=== PATIENT | female | born 1960 | race African-American/Black ===

== ENCOUNTER 2016-08-21 22:51 | Inpatient (IN) | payer OTHER ==
--- NOTE | ~2016-08-21 | CO ---
Unit #: [id number] #: [id number] Patient: SELVIN RANGEL [id number] [address] [place], [place] [address] [id number] MR#: [id number] NAME: SELVIN RANGEL ROOM: 229 Age: 56 Sex: F Admission Date: 08/21/2016 : 1960 Attending Physician: Giorgi Cobian M.D. Primary Care Physician: Jenaro Blanca M.D. Consultation Date: 08/22/2016 CONSULTATION REPORT HISTORY OF PRESENT ILLNESS Ms. Rangel is a 56-year-old female, who presented in the ER with a 3-day history of colicky abdominal pain, abdominal bloating, and nausea, but no vomiting, fever, chills, or dysuria. She has had 2 normal stools within the last 24 hours and since the hospital admission, she has passed flatus. However, a CT scan in the emergency room was concerning for possible partial small bowel obstruction. The patient has had a similar episode in 2013 where with conservative management, she resolved partial small-bowel obstruction or an ileus. The patient denies any hematemesis, hematochezia, or melena. PAST MEDICAL HISTORY History of seizure disorder, her last seizure was 2 years ago. She has had a lap john 10 or 15 years ago, total abdominal hysterectomy 20 years ago, history of diabetes, depression, hyperlipidemia. She is status post hip and knee surgery by Dr. Mars. ALLERGIES She has an allergy to Stadol. CURRENT MEDICATIONS Include Seroquel, Keppra, Prilosec, Lamictal, Desyrel, Ambien, metformin, pravastatin, lisinopril, and vitamin D. FAMILY HISTORY Diabetes and atherosclerotic coronary artery disease. SOCIAL HISTORY Lives with family. Denies use of tobacco or alcohol. REVIEW OF SYSTEMS Again no hematemesis, hematochezia, or melena. No vomiting. No dysuria. No productive cough. PHYSICAL EXAMINATION GENERAL: She is awake, alert, and oriented. Very pleasant demeanor. NG tube was well positioned. VITAL SIGNS: Temperature is 97.8, pulse 91 and regular, respirations 12, blood pressure 139/79. HEENT: Unremarkable. No scleral icterus. CARDIAC: Regular rate and rhythm. LUNGS: Clear. ABDOMEN: Soft and nondistended. She has no involuntary guarding or rebound tenderness. There is no mass. Wounds are all well healed without Unit #: [id number] #: [id number] Patient: SELVIN RANGEL hernia. EXTREMITIES: No clubbing, cyanosis, or edema. NEUROLOGIC: Grossly intact. DIAGNOSTIC STUDIES LABORATORY RESULTS: Pending. IMAGING STUDIES: CT scan was consistent with possible partial small-bowel obstruction. No transition point identified. ASSESSMENT AND PLAN A 56-year-old female, who has had a previous hysterectomy and laparoscopic cholecystectomy, who presents with colicky abdominal pain, abdominal bloating, and nausea. CT scan was suggestive of a partial small-bowel obstruction. However, the patient continues to have bowel function. Today, we will stimulate her bowel. Repeat her flat and upright abdominal x-ray. Adequately hydrate her and check her laboratories. We will try to treat this conservatively. States she will resolve as she has previously. However, I will plan since she has had previous episodes to do a small-bowel followthrough to confirm that her bowel is normal prior to discharge if she does not show signs of persistent obstruction and need surgery. I have discussed this with the patient. She understands and agrees to proceed. Dictated by... Sophie Mendosa/senia TD: 08/22/2016 07:02 JOB #: [id number] CONSULTATION REPORT Page 1 of 1 X Giorgi Cobian MD X CONSULTATION REPORT
--- NOTE | ~2016-08-21 | CR236 ---
[facility] A Service of [facility] & [facility] RADIOLOGY TEXT RESULTS PATIENT: SELVIN COHEN LOCATION: C2A 229-01 : 58 UNIT #: [id number] AGE: [address]: Giorgi Cobian MD SEX: F ORDER DR: [id number] [facility] [address] [place], [place] [address] [id number] I MR#: [id number] Acc #: [id number] NAME: SELVIN COHEN : 1960 SEX: F STUDY DATE/TIME: 08/23/2016 8:29 UNIT: C2A ROOM: 229 STUDY DESCRIPTION: CR Small Bowel Sbft W Films Attending Physician: Giorgi Cobian M.D. Ordering Physician: Giorgi Cobian M.D. Primary Care Physician: Jenaro Blanca M.D. MEDICAL IMAGING REPORT This report is preliminary unless electronic signature is present EXAM Small bowel series. INDICATION Abdominal cramping and constipation for 3 days. FINDINGS Patient was initially administered barium through her nasogastric tube, however, this was difficult to administer probably secondary to some blockage within the distal aspect of the catheter. I did attempt flushing the catheter several times and advanced a wire through it in order to see if this would improve flow within it but this was unsuccessful and patient was subsequently administered the barium orally. The patient's initial mechanical engineering intern image was unremarkable. Visualized portions of the stomach appeared unremarkable. Patient was noted to have oral contrast material within the colon on 4-hour 50 minutes, however, 2-hour and 30-minute images no contrast was identified within the colon. There was a prominent loop of small bowel seen within the left upper quadrant which did appear to have some mucosal thickening. I suspect this probably corresponds to the area seen on prior study from August 21, 2016. IMPRESSION This patient does have delayed transit through the small bowel. Oral contrast was not identified within the colon until the 4 hour and 50 minute images. However, the patient does not appear to be completely obstructed. The majority of the small bowel loops actually appear unremarkable. There is a loop of small bowel seen within the left upper quadrant which I think does have some fold thickening and this probably represents the loop of bowel that was seen on a prior CT from August 21, 2016. Certainly CT of the abdomen and pelvis with oral and IV contrast would be much more sensitive for evaluation of the bowel. A total of 5 fluoroscopic images were obtained, as were 4 overhead images. Spot images were not obtained due to prolonged small bowel transit time. No [facility]. [facility] A Service of [facility] RADIOLOGY TEXT RESULTS PATIENT: SELVIN COHEN LOCATION: [facility] 229-01 : 58 UNIT #: [id number] AGE: [address]: Giorgi Cobian MD SEX: F ORDER DR: fluoroscopy time was recorded. Dictated by... Kaylyn Quintana M.D. THIS IS AN ELECTRONICALLY VERIFIED REPORT Kaylyn Quintana M.D. at 08/24/2016 4:37 PM AFF/josy TD: 08/24/2016 12:18 JOB #: [id number] MEDICAL IMAGING REPORT Page 1 of 1 COPY
--- NOTE | ~2016-08-21 | BMI ---
[facility] Nutrition Therapy DATE: 08/22/16 Patient: SELVIN COHEN Physician: MARYCRUZ Address: [address] [place] [address] Room/Bed: [address] [place] [address], Zip: [place] [address] Admit Date: 08/21/16 Date of : 58 Height: 5 5 Weight: 241 109.5 HIGH BMI NOTE: DX: 56 y/o female admitted with SBO ANTHROPOMETRICS: Ht: 65", Wt: 109.5 kg, BMI: 40 (Stage III obese) DIET: NPO INTERVENTION: Diet as tolerated, meds/fluids per MD RECOMMENDATIONS: 1. Advance to consistent carb/healthy heart diet as tolerated due to PMH of diabetes and to promote a gradual weight loss towards a healthy BMI range. 2. If unable to advance PO diet due to dx and nutrition support is needed please consult RD for further recommendations. Respectfully, Tiffanie Dahl RD, LD [facility] cc: client file
--- NOTE | ~2016-08-21 | DS ---
Unit #: [id number] #: [id number] Patient: SELVIN COHEN [id number] [facility]. [place], [place] [address] [id number] I MR#: [id number] NAME: SELVIN COHEN ROOM: 229 Age: 56 Sex: F Admission Date: 08/21/2016 : 1960 Discharge Date: 08/25/2016 Attending Physician: Giorgi Cobian M.D. Primary Care Physician: Jenaro Blanca M.D. DISCHARGE SUMMARY CONSULTATIONS None. PROCEDURE PERFORMED None. ADMITTING DIAGNOSIS Partial small-bowel obstruction. DISCHARGE DIAGNOSIS Partial small-bowel obstruction. SECONDARY DIAGNOSES History of seizure disorder, hypertension, and diabetes. BRIEF HOSPITAL COURSE This is a 56-year-old lady, who was admitted with signs and symptoms of partial small-bowel obstruction. She was admitted and managed conservatively. She had a small bowel follow-through that showed no obstruction. She was tolerating regular diet and having flatus prior to discharge. DISPOSITION Discharged to home. DISCHARGE INSTRUCTIONS She is to follow up with [facility] as necessary. She can be on a regular diet and resume her home medications. Dictated by... Patrick Puente III, M.D. VCL/senia TD: 08/26/2016 01:20 JOB #: [id number] Unit #: [id number] #: [id number] Patient: SELVIN COHEN DISCHARGE SUMMARY Page 1 of 1 X Patrick Puente III, MD X DISCHARGE SUMMARY
--- NOTE | ~2016-08-21 | CR4 ---
[facility] A Service of [facility] & [facility] RADIOLOGY TEXT RESULTS PATIENT: SELVIN COHEN LOCATION: C2A 229-01 : 58 UNIT #: [id number] AGE: [address]: Giorgi Cobian MD SEX: F ORDER DR: [id number] [facility] [address] [place], [place] [address] [id number] I MR#: [id number] Acc #: [id number] NAME: SELVIN COHEN : 1960 SEX: F STUDY DATE/TIME: 08/22/2016 09:34 UNIT: C2A ROOM: 229 STUDY DESCRIPTION: CR Abdomen Flat Upright or Dec Attending Physician: Giorgi Cobian M.D. Ordering Physician: Giorgi Cobian M.D. Primary Care Physician: Jenaro Blanca M.D. MEDICAL IMAGING REPORT This report is preliminary unless electronic signature is present EXAM Abdomen supine and upright, 08/22/2016 0934 hours HISTORY 56-year-old woman complaining of persistent abdominal pain with nausea and vomiting, follow up small bowel obstruction. Symptoms since 08/21/2016. COMPARISON CT abdomen 08/21/2016 FINDINGS There is a nasogastric tube present with tip in the mid body of the stomach. The bowel gas pattern is nonspecific. No dilated loops of small bowel are seen on plain film. The colon is nondistended. Surgical clips are present in the left side of the pelvis, unchanged. IMPRESSION 1. Nasogastric tube tip is in the mid body of the stomach. 2. No definite residual small bowel dilatation is seen. The colon is decompressed. The dilated loops of bowel seen on CT yesterday are not detected on plain film. There is no free air. Dictated by... Joceline Velasquez M.D. THIS IS AN ELECTRONICALLY VERIFIED REPORT Joceline Velasquez M.D. at 08/23/2016 9:38 AM SAM/wale TD: 08/22/2016 18:45 JOB #: [id number] [facility] A Service of [facility] & [facility] RADIOLOGY TEXT RESULTS PATIENT: SELVIN COHEN LOCATION: A 229-01 : 58 UNIT #: [id number] AGE: [address]: Giorgi Cobian MD SEX: F ORDER DR: MEDICAL IMAGING REPORT Page 1 of 1 COPY
[~2016-08-21 22:51] MED LIST: ADVAIR 1001 DISK W/D PO; AMBIEN PO; BACTRIM DS TABL1 TA1 PO; CIPRO PO; COUMADIN3 MG PO; DESYREL150 M1 PO; FLEXERIL10 MG PO; IBUPROFEN800 MG PO; IMITREX; KEPPRA1000 MG PO; KEPPRA500 M2 PO; LAMICTAL ODT200 MG PO; LAMICTAL PO; LISINOPRIL20 MG PO; METFORMIN HCL500 M1 PO; NORCO 10/3251 TAB PO; PHENERGAN25 M1 PO; PRAVASTATIN SOD40 MG PO; PRILOSEC PO; PRILOSEC20 MG PO; PROTONIX PO; PYRIDIUM100 MG PO; RELAFEN PO; SEROQUEL XR400 M1 PO; SEROQUEL400 MG PO; TYLENOL #3 PO; TYLENOL PO; TYLENOL325 M1 PO; VITAMIN D350000 UNIT PO; VOLTAREN50 MG PO; ZOLPIDEM TARTRAT5 MG PO
[2016-08-22 06:29] LABS: BASOPHIL% 0.3 % (0-2.5); EOSINOPHIL# 0.2 X10e3 (0-0.7); EOSINOPHIL% 2.1 % (0.0-7.0); HEMATOCRIT 32.1 % (35.0-45.0); HEMOGLOBIN 10.2 gm/dL (12.0-16.0); LYMPHOCYTE# 2.4 X10e3 (1.0-3.5); LYMPHOCYTE% 33.3 % (17.0-45.0); MEAN CELL VOLUME 88.4 FL (83-96); MEAN CORPUSCULAR HGB CONC 31.7 g/dL (30-36); MEAN PLATELET VOLUME 7.4 FL (6.5-11.5); MONOCYTE# 0.6 X10e3 (0-1.0); MONOCYTE% 7.9 % (3.0-12.0); NEUTROPHIL% 56.4 % (40-75); PLATELET COUNT 242 X10e3 (140-420); RED BLOOD COUNT 3.63 X10e (3.90-5.30); RED CELL DISTRIBUTION WIDTH 13.9 % (11.0-15.5); WHITE BLOOD COUNT 7.2 X10e3 (4.0-10.5)
[2016-08-22 06:32] LABS: DIFF IND NO
[2016-08-22 06:48] LABS: BLOOD UREA NITROGEN 13 mg/dL (9-23); BUN/CREATININE RATIO 18.57; CALCIUM SERUM 8.7 mg/dL (8.4-10.2); CARBON DIOXIDE 26 mmol/L (22-31); CHLORIDE 105 mmol/L (100-111); CREATININE SERUM 0.7 mg/dL (0.6-1.4); GLOM FILT RATE Estimated ABOVE60 mL/min (>60); GLUCOSE FASTING 133 mg/dL (70-110); MAGNESIUM 1.7 mg/dL (1.6-3.0); SODIUM 138 mmol/L (135-145)
[2016-08-23 07:01] LABS: HEMATOCRIT 33.4 % (35.0-45.0); HEMOGLOBIN 10.6 gm/dL (12.0-16.0); MEAN CELL VOLUME 88.3 FL (83-96); MEAN CORPUSCULAR HEMOGLOBIN 28.1 PG (28-34); MEAN CORPUSCULAR HGB CONC 31.8 g/dL (30-36); MEAN PLATELET VOLUME 7.4 FL (6.5-11.5); RED BLOOD COUNT 3.78 X10e (3.90-5.30); RED CELL DISTRIBUTION WIDTH 13.7 % (11.0-15.5); WHITE BLOOD COUNT 7.6 X10e3 (4.0-10.5)
[2016-08-23 08:06] LABS: BLOOD UREA NITROGEN 8 mg/dL (9-23); BUN/CREATININE RATIO 13.33; CALCIUM SERUM 8.9 mg/dL (8.4-10.2); CARBON DIOXIDE 28 mmol/L (22-31); CHLORIDE 104 mmol/L (100-111); CREATININE SERUM 0.6 mg/dL (0.6-1.4); GLOM FILT RATE Estimated ABOVE60 mL/min (>60); GLUCOSE FASTING 104 mg/dL (70-110); POTASSIUM 4.1 mmol/L (3.5-5.1); SODIUM 138 mmol/L (135-145)
== END 2016-08-25 11:40 | disposition home or self-care (01) | DRG 390 ==
LOC: C2A 22:51
PROVIDERS: Specialist
DX: K56.60 Unspecified intestinal obstruction (principal); I10 Essential (primary) hypertension; G40.909 Epilepsy, unspecified, not intractable, without status epilepticus; E11.9 Type 2 diabetes mellitus without complications; Z79.84 Long term (current) use of oral hypoglycemic drugs; Z90.49 Acquired absence of other specified parts of digestive tract; Z90.710 Acquired absence of both cervix and uterus; E78.5 Hyperlipidemia, unspecified; F32.9 Major depressive disorder, single episode, unspecified
CPT/HCPCS: 74020; 74250; 80048; 82947; 83735; 85025; 85027; C1769; C9113; J1170; J1650; J1953; J2270; J2405

== ENCOUNTER → 2016-11-07 | Outpatient (CLI) | payer OTHER ==
[~2016-11-07] MED LIST changes: +HYDROCODONE PO; +REGLAN10 MG PO
--- NOTE | ~2016-11-07 | EKG ---
PATIENT: SELVIN COHEN UNIT #: [id number] Ventricular Rate: 92 BPM Atrial Rate: 92 BPM P-R Interval: 156 ms QRS Duration: 100 ms Q-T Interval: 360 ms QTC Calculation(Bezet): 445 ms P [place]: 59 degrees Calculated R [place]: 5 degrees Calculated T [place]: 61 degrees Diagnosis Line: Normal sinus rhythm Diagnosis Line: Voltage criteria for left ventricular hypertrophy Diagnosis Line: Abnormal ECG Diagnosis Line: When compared with ECG of 27-JUL-2015 11:18, Diagnosis Line: No significant change was found Diagnosis Line: Confirmed by EBONY OGDEN MD ([id number]) on Diagnosis Line: 11/07/2016 10:20:42 PM INTERPRETING MD: RADHA
[2016-11-07 13:13] LABS: HEMATOCRIT 37.6 % (35.0-45.0); HEMOGLOBIN 11.9 gm/dL (12.0-16.0); MEAN CELL VOLUME 87.9 FL (83-96); MEAN CORPUSCULAR HEMOGLOBIN 27.8 PG (28-34); MEAN CORPUSCULAR HGB CONC 31.6 g/dL (30-36); MEAN PLATELET VOLUME 7.3 FL (6.5-11.5); RED BLOOD COUNT 4.28 X10e (3.90-5.30); RED CELL DISTRIBUTION WIDTH 13.9 % (11.0-15.5)
[2016-11-07 13:53] LABS: ALBUMIN SERUM 4.5 g/dL (3.5-5.0); BILIRUBIN,TOTAL 0.7 mg/dL (0.2-2.0); CALCIUM SERUM 9.9 mg/dL (8.4-10.2); GLOM FILT RATE Estimated 72.5 mL/min (>60); POTASSIUM 4.1 mmol/L (3.5-5.1)
== END | disposition home or self-care (01) ==
LOC: CAMB 12:23 → EDSTATUS 13:00
PROVIDERS: Specialist
DX: Z01.818 Encounter for other preprocedural examination (principal)
CPT/HCPCS: 36415; 80053; 85027; 93005

== ENCOUNTER 2016-11-14 07:16 | Inpatient (IN) | payer OTHER ==
--- NOTE | ~2016-11-14 | OR ---
Unit #: [id number] #: [id number] Patient: SELVIN RANGEL [id number] [facility] [address] [place] [address] [facility]. [place], [place] [address] [id number] I MR#: [id number] NAME: SELVIN RANGEL ROOM: 464 Date of Procedure: 11/14/2016 Admission Date: 11/14/2016 Surgeon: Giorgi Cobian M.D. : 1960 Attending Physician: Giorgi Cboian M.D. Referring Physician: Giorgi Cobian M.D. Primary Care Physician: Jenaro Blanca M.D. OPERATIVE REPORT PREOPERATIVE DIAGNOSIS Chronic recurrent partial small bowel obstruction. POSTOPERATIVE DIAGNOSIS Chronic recurrent partial small bowel obstruction. PROCEDURES PERFORMED Exploratory laparotomy, extensive lysis of adhesions with right hemicolectomy with extended ileal resection. ANESTHESIA General endotracheal anesthesia. ESTIMATED BLOOD LOSS 100 mL. COMPLICATIONS One small bowel enterotomy was encountered during the case with minimal contamination. INDICATIONS FOR PROCEDURE Ms. Rangel is a 56-year-old female, who had several presentations for what appeared to be a small bowel obstruction that with conservative management would improve. During one hospitalization, she had a small bowel followthrough, which showed no definitive obstruction, but she did have persistently dilated proximal small bowel and a very slow transit time. She re-presented to the office with complaints of persistent postprandial bloating, colic, nausea, and vomiting. Because of her multiple presentations, previous history of abdominal surgery, we discussed and she agreed to exploratory laparotomy to evaluate for partial small bowel obstruction from adhesions or internal hernia. DESCRIPTION OF PROCEDURE The patient was admitted to [facility], positively identified, and transported to the operating room, and after induction of general endotracheal anesthesia, she received IV antibiotics per SCIP protocol. SCDs, catheter, and nasogastric tube were placed. She was prepped and draped in usual sterile fashion. A midline incision was made, dissected down through the soft tissue, entered the peritoneal cavity. Upon entering the peritoneal cavity, omental adhesions were taken down from the anterior abdominal wall circumferentially and then a Bookwalter retractor was used for retraction. She had very dense and Unit #: [id number] #: [id number] Patient: SELVIN RANGEL extensive adhesions down in her pelvis. We identified the cecum and free and dilated proximal small bowel loops, but as the small bowel went down into the pelvis, it was blanca matted with thick dense adhesions. It was a very tedious and slow dissection to bring all this small bowel that was adhesed in the pelvis up and freed up from the vaginal cuff and the lateral side velasquez. During the dissection, one enterotomy deep in the pelvis was made. There was a small contamination that was quickly controlled. This area was irrigated and there was no residual contamination after irrigation. Once we had completely freed up the bowel, we irrigated the pelvis and then packed it off. The small bowel was then evaluated from the ileocecal valve all the way to the ligament of Treitz. Some of the distal ileum for about 30 cm had a lot of serosal bruising, some of the mesentery was of questionable viability and I was concerned that leaving this portion of the small bowel, she might run into problems of ischemia or stricture. For this reason, I followed the bowel back to where we had excellent viability and good blood supply and divided the ileum with the ANDRIY stapler. I then mobilized the ascending colon and did a partial right hemicolectomy and then sequentially clamped, divided, and ligated the mesentery. The anterior tenia of the distal ascending colon was identified. The proximal small bowel antimesenteric border was secured with 3-0 silk sutures to the anterior tenia. A colotomy and enterotomy were made and then a full length of the 75 mm ANDRIY stapler was used to create a functional end-to-end and [id number] stapled anastomosis. The anastomosis was widely patent. There was no bleeding along the mucosal surfaces. The open end was closed with Allis clamps and then stapled shut with a TA 60 stapler. Staple line was oversewn with 3-0 silk suture. Mesenteric defect was closed. The anastomosis and small bowel were then reduced back in the peritoneal cavity. We copiously irrigated with sterile saline. There was excellent hemostasis and no residual contamination. We carefully checked the pelvis and there was no bleeding. The NG tube was well positioned. Some of the omentum was mobilized and put down into the pelvis to try to prevent any further small bowel adhesions. The bowel was placed again back in the anatomic position and the midline fascia was closed with #1 PDS sutures. Once the fascia was closed, I irrigated the soft tissue with saline followed by Betadine, and the skin was closed with sterile skin brittany. Dry sterile dressing was placed. Sponges and needle counts were correct x3. The patient tolerated the procedure well and transported to recovery in stable condition. Findings and postoperative expectations were discussed with her family. Dictated by... Sophie Mendosa/senia TD: 11/15/2016 04:38 JOB #: [id number] Unit #: [id number] #: [id number] Patient: SELVIN RANGEL OPERATIVE REPORT Page 1 of 1 X Giorgi Cobian MD PROCEDURE OPERATIVE NOTE
--- NOTE | ~2016-11-14 | DS ---
Unit #: [id number] #: [id number] Patient: SELVIN RANGEL [id number] [address] [address] [id number] I MR#: [id number] NAME: SELVIN RANGEL ROOM: 464 Age: 56 Sex: F Admission Date: 11/14/2016 : 1960 Discharge Date: 11/18/2016 Attending Physician: Giorgi Cobian M.D. Referring Physician: Giorgi Cobian M.D. Primary Care Physician: Jenaro Blanca M.D. DISCHARGE SUMMARY HISTORY AND EXAM Ms. Rangel was brought in the morning of surgery because of a history of a chronic partial small bowel obstruction. She underwent exploratory laparotomy and bowel resection and postoperatively had an unremarkable course. She was afebrile with stable vital signs. Once she regained bowel functions, she was able to be quickly advanced to a regular diet. Her laboratories were unremarkable. Her wound is healing without complication. She will be discharged home today with instruction to undergo diet as tolerated. She may shower but no submerge her wound under water. She is not to do any strenuous activity. She is to follow up in the office in one to two weeks. Med reconciliation sheet was completed. The patient understood these instructions, discharged home in stable condition. Dictated by... Sophie Mendosa/rd TD: 11/20/2016 16:20 JOB #: [id number] DISCHARGE SUMMARY Page 1 of 1 X Giorgi Cobian MD X DISCHARGE SUMMARY
[~2016-11-14 07:16] MED LIST changes: -HYDROCODONE PO; -REGLAN10 MG PO
[2016-11-15 03:11] LABS: HEMATOCRIT 28.4 % (35.0-45.0); MEAN CORPUSCULAR HEMOGLOBIN 27.7 PG (28-34); MEAN CORPUSCULAR HGB CONC 31.8 g/dL (30-36); MEAN PLATELET VOLUME 7.5 FL (6.5-11.5); RED BLOOD COUNT 3.27 X10e (3.90-5.30); RED CELL DISTRIBUTION WIDTH 13.9 % (11.0-15.5); WHITE BLOOD COUNT 11.6 X10e3 (4.0-10.5)
[2016-11-15 03:47] LABS: BUN/CREATININE RATIO 13.33; CALCIUM SERUM 8.2 mg/dL (8.4-10.2); CREATININE SERUM 0.6 mg/dL (0.6-1.4); GLOM FILT RATE Estimated 117.3 mL/min (>60); MAGNESIUM 1.6 mg/dL (1.6-3.0); PHOSPHOROUS 2.8 mg/dL (2.5-4.6); POTASSIUM 4.2 mmol/L (3.5-5.1)
[2016-11-16 03:15] LABS: HEMATOCRIT 26.6 % (35.0-45.0); HEMOGLOBIN 8.7 gm/dL (12.0-16.0); MEAN CELL VOLUME 86.9 FL (83-96); MEAN CORPUSCULAR HEMOGLOBIN 28.3 PG (28-34); MEAN CORPUSCULAR HGB CONC 32.6 g/dL (30-36); MEAN PLATELET VOLUME 6.8 FL (6.5-11.5); RED BLOOD COUNT 3.06 X10e (3.90-5.30); RED CELL DISTRIBUTION WIDTH 14.2 % (11.0-15.5); WHITE BLOOD COUNT 8.3 X10e3 (4.0-10.5)
[2016-11-16 03:55] LABS: BUN/CREATININE RATIO 7.14; CALCIUM SERUM 8.1 mg/dL (8.4-10.2); CREATININE SERUM 0.7 mg/dL (0.6-1.4); GLOM FILT RATE Estimated 111.5 mL/min (>60); POTASSIUM 4.2 mmol/L (3.5-5.1)
[2016-11-18] MEDS ORDERED: HYDROCODONE PO (09:59)
== END 2016-11-18 10:55 | disposition home or self-care (01) | DRG 331 ==
LOC: CSUR 07:16 → CPACUOF 10:16 → CSUR 10:16 → C4C 10:16 → CPACUOF 11:46 → C4C 13:14 → CPACUOF 13:14 → C4C 13:14
PROVIDERS: Specialist
PROC: 0DN80ZZ Release Small Intestine, Open Approach (ICD-10-PCS; 2016-11-14)
PROC: 0DTF0ZZ Resection of Right Large Intestine, Open Approach (ICD-10-PCS; principal; 2016-11-14 09:00)
PROC: 0DTB0ZZ Resection of Ileum, Open Approach (ICD-10-PCS; 2016-11-14 09:00)
DX: K56.5 Intestinal adhesions [bands] with obstruction (postinfection) (principal); I10 Essential (primary) hypertension; G40.909 Epilepsy, unspecified, not intractable, without status epilepticus; Z87.442 Personal history of urinary calculi; Z90.710 Acquired absence of both cervix and uterus; F41.9 Anxiety disorder, unspecified; M19.90 Unspecified osteoarthritis, unspecified site; K31.9 Disease of stomach and duodenum, unspecified; K21.9 Gastro-esophageal reflux disease without esophagitis; Z96.642 Presence of left artificial hip joint; Z96.651 Presence of right artificial knee joint; E11.9 Type 2 diabetes mellitus without complications; Z79.84 Long term (current) use of oral hypoglycemic drugs; J44.9 Chronic obstructive pulmonary disease, unspecified; J45.909 Unspecified asthma, uncomplicated
CPT/HCPCS: 80048; 82947; 83735; 84100; 85027; 88307; 94760; 94761; C9113; J0330; J0690; J1815; J1885; J2250; J2270; J2370; J2405; J2543; J2710; J2765; J3010

== ENCOUNTER 2016-11-21 00:58 | Inpatient (IN) | payer OTHER ==
--- NOTE | ~2016-11-21 | CT2 ---
[facility] A Service of [facility] & [facility] RADIOLOGY TEXT RESULTS PATIENT: SELVIN COHEN LOCATION: [facility] 467-01 : 58 UNIT #: [id number] AGE: [address]: Cameron Santos MD SEX: F ORDER DR: [id number] [facility] [address] [place], [place] [address] [id number] I MR#: [id number] Acc #: [id number] NAME: SELVIN COHEN : 1960 SEX: F STUDY DATE/TIME: 11/21/2016 03:57 UNIT: [facility] ROOM: [facility] STUDY DESCRIPTION: CT Abd and Pelv W Cont Attending Physician: Cameron Santos Jr., M.D. Ordering Physician: Sarina Flor M.D. Primary Care Physician: Jenaro Blanca M.D. MEDICAL IMAGING REPORT This report is preliminary unless electronic signature is present EXAM Abdomen and pelvis CT, 11/21 at 03:57 INDICATION Constipation for 1 week with no bowel movement. Exploratory laparotomy 11/14/2016. Patient reports nausea, vomiting and abdominal pain as well. TECHNIQUE Axial images were obtained through the abdomen and pelvis following IV contrast administration. Multiplanar reformats were obtained. This CT exam was performed with one or more of the following radiation dose reduction techniques: automatic exposure control, adjustment of mA and/or kV according to patient size, and iterative reconstruction. COMPARISON 08/21/2016 FINDINGS ABDOMEN: There is some chronic scarring or atelectasis at the left lung base. Gallbladder is surgically absent. No biliary obstruction. Solid organs are normal. There is a high-grade mid small bowel obstruction. Jejunal loops are dilated up to at least 3.6 cm and there is some fecalization of small bowel contents. There is a relative transition zone in the left ink-tl-nviol abdomen but no focal obstructing lesion is seen. The small bowel distal to this is decompressed but does contain some feculent material as well. Postoperative changes are noted involving the proximal ascending colon. This is new since the previous study. The remainder of the colon is within normal limits. Patient is status post recent midline surgery. There is a trace amount of free fluid in the mesentery. PELVIS: The distal colon is decompressed. There is a small volume of STS. [facility] A Service of [facility] RADIOLOGY TEXT RESULTS PATIENT: SELVIN COHEN LOCATION: [facility] 467-01 : [birth year] UNIT #: [id number] AGE: [address]: Cameron Santos MD SEX: F ORDER DR: free fluid. Detail is obscured by streak artifact from bilateral hip arthroplasties. The uterus is presumed surgically absent. IMPRESSION 1. Recent abdominal surgery with postoperative change noted involving the proximal right colon. 2. There is a high-grade mid small bowel obstruction. Dilated small bowel loops are seen in the jejunum with fecalization of bowel contents. The distal ileum is decompressed. There is a relative transition zone in the left pgg-rr-qgvpz abdomen/pelvis but no focal obstructing lesion is seen. 3. There is some free fluid in the pelvis and in the mesentery but there is no abscess. 4. Bilateral hip arthroplasties, hysterectomy, and cholecystectomy. Dictated by... Giorgi Griggs Jr., M.D. THIS IS AN ELECTRONICALLY VERIFIED REPORT Giorgi Griggs Jr., M.D. at 11/21/2016 9:23 PM Memo TD: 11/21/2016 12:34 JOB #: [id number] MEDICAL IMAGING REPORT Page 1 of 1 COPY
--- NOTE | ~2016-11-21 | CR7 ---
[facility] A Service of [facility] RADIOLOGY TEXT RESULTS PATIENT: SELVIN COHEN LOCATION: [facility]12-02 : 58 UNIT #: [id number] AGE: [address]: Cameron Santos MD SEX: F ORDER DR: [id number] [facility] [address] [place], [place] [address] [id number] I MR#: [id number] Acc #: [id number] NAME: SELVIN COHEN : 1960 SEX: F STUDY DATE/TIME: 11/21/2016 17:07 UNIT: [facility] ROOM: [facility] STUDY DESCRIPTION: CR Abdomen Single AP View Attending Physician: Cameron Santos Jr., M.D. Ordering Physician: Cameron Santos Jr., M.D. Primary Care Physician: Jenaro Blanca M.D. MEDICAL IMAGING REPORT This report is preliminary unless electronic signature is present EXAM AP abdomen INDICATIONS Dobbhoff tube. Vomiting, diarrhea, and abdominal pain. Compared with 08/22/2016 FINDINGS There is an NG-tube in the region of the stomach. Midline surgical brittany. There are prominent loops of small bowel with air-fluid levels. Given the recent appearance of surgery this may represent ileus, however obstruction cannot entirely be excluded. Continued radiographic followup is recommended. IMPRESSION 1. NG-tube in the region of the stomach. 2. Prominent dilated loops of small bowel with fluid levels. Findings suggesting recent surgery with midline surgical brittany. Differential diagnosis includes ileus versus obstruction. Continued radiographic followup is recommended. Dictated by... Zane Conley M.D. THIS IS AN ELECTRONICALLY VERIFIED REPORT Zane Conley M.D. at 11/23/2016 3:25 PM EMILY/nancy TD: 11/21/2016 23:59 JOB #: [id number] [facility] A Service of [facility] RADIOLOGY TEXT RESULTS PATIENT: SELVIN COHEN [id number] [birth year] UNIT #: [id number] AGE: [address]: Cameron Santos MD SEX: F ORDER DR: MEDICAL IMAGING REPORT Page 1 of 1 COPY
--- NOTE | ~2016-11-21 | HP ---
Unit #: [id number] #: [id number] Patient: SELVIN COHEN [id number] [address] [place], [place] [address] [id number] I MR#: [id number] NAME: SELVIN COHEN ROOM: [id number] Age: 56 Sex: F Admission Date: 11/21/2016 : 1960 Attending Physician: Cameron Santos Jr., M.D. Primary Care Physician: Jenaro Blanca M.D. HISTORY AND PHYSICAL CHIEF COMPLAINT Nausea and vomiting. PRESENT ILLNESS Patient is a 56-year-old, black female who was just released from the hospital 3 days ago after having surgery a week ago for chronic recurrent small bowel obstruction. She had her distal ileum and a portion of the right colon resected and was doing fairly well on discharge three days ago until she developed nausea and vomiting over the last 24 hours. She has had no fever or chills. No hematemesis. She did take an enema last night with only a small amount of results. She has medical problems in the past include seizures and is on medication for this. PAST MEDICAL HISTORY Unchanged since her admission several days ago. PHYSICAL EXAMINATION VITAL SIGNS: Temperature on admission 99.5, pulse 85, respirations 18, and blood pressure 143/74. GENERAL DESCRIPTION: The patient is a well developed, obese, 56-year-old, black female in no acute distress. HEENT: Non-remarkable. NECK: Supple. CHEST: There is equal bilateral expansion with bilateral equal breath sounds. LUNGS: Clear bilaterally. HEART: Regular rhythm without murmurs or gallops. No evidence of cardiomegaly clinically. ABDOMEN: Soft, obese, and mildly tender with a healing midline incision with brittany still in place. No evidence of any hernias or infection. There are no palpable masses or organomegaly. No guarding or rebound. Active bowel sounds are present. EXTREMITIES: Full range of motion without limitation. There is no evidence of peripheral edema. BACK: No CVA tenderness. NEUROLOGICAL: Grossly intact. IMPRESSION On the basis of her CT scan, she may have some recurrent small bowel obstruction or merely an ileus. The plan will be to admit her, have an NG tube placed with decompression and observe her over the next 24-48 hours. Unit #: [id number] #: [id number] Patient: SELVIN COHEN Dictated by Cameron Santos Jr., M.D. JMB/efren TD: 11/21/2016 07:19 JOB #: [id number] HISTORY AND PHYSICAL Page 1 of 1 X Cameron Santos MD X HISTORY AND PHYSICAL
--- NOTE | ~2016-11-21 | CR236 ---
[facility] A Service of [facility] RADIOLOGY TEXT RESULTS PATIENT: SELVIN COHEN LOCATION: [facility] 46- : 58 UNIT #: [id number] AGE: [address]: Cameron Santos MD SEX: F ORDER DR: [id number] [place] [id number] [facility]. [place], [place] [address] [id number] I MR#: [id number] Acc #: [id number] NAME: SELVIN COHEN : 1960 SEX: F STUDY DATE/TIME: 11/23/2016 7:58 UNIT: [facility] ROOM: [facility] STUDY DESCRIPTION: CR Small Bowel Sbft W Films Attending Physician: Cameron Santos Jr., M.D. Ordering Physician: Patrick Puente III, M.D. Primary Care Physician: Jenaro Blanca M.D. MEDICAL IMAGING REPORT This report is preliminary unless electronic signature is present EXAM Small bowel follow-through HISTORY Constipation, vomiting, nausea post exploratory lap. FINDINGS This examination consists of a total of 7 radiographs obtained prior to the exam and through 2.5 hours. Air Hose Coupler film shows a nasoenteric tube in place and evidence of recent surgery. There is some mild small bowel dilatation. Contrast media was instilled through the NG tube. Images were obtained sequentially at 15 minutes, 30 minutes, 45 minutes, 1 hour, 1 hour 40 minutes, and 2.5 hours. There is relatively slow transit of the contrast through the bowel. The small bowel and stomach are mildly distended. The more distal small bowel loops are less distended. The patient has contrast within the colon at 3.5 hours post ingestion. There is no evidence of obstruction. CONCLUSION The findings suggest an adynamic ileus. There is somewhat delayed transit of the contrast media through the bowel, but it does pass to the rectal vault by 3.5 hours. Dictated by... Kannan Brewster M.D. THIS IS AN ELECTRONICALLY VERIFIED REPORT Kannan Brewster M.D. at 11/25/2016 9:32 AM STS. [facility] A Service of [facility] & [facility] RADIOLOGY TEXT RESULTS PATIENT: SELVIN COHEN LOCATION: [facility] [id number] : 58 UNIT #: [id number] AGE: [address]: Cameron Santos MD SEX: F ORDER DR: NICOL/wale TD: 11/23/2016 22:55 JOB #: [id number] MEDICAL IMAGING REPORT Page 1 of 1 COPY
--- NOTE | ~2016-11-21 | CR4 ---
[facility] A Service of [facility] & [facility] RADIOLOGY TEXT RESULTS PATIENT: SELVIN COHEN LOCATION: [place] [address]- : 58 UNIT #: [id number] AGE: [address]: Cameron Santos MD SEX: F ORDER DR: [id number] [facility] [address] [facility]. [place], [place] [address] [id number] I MR#: [id number] Acc #: [id number] NAME: SELVIN COHEN : 1960 SEX: F STUDY DATE/TIME: 11/22/2016 9:13 UNIT: [facility] ROOM: [facility] STUDY DESCRIPTION: CR Abdomen Flat Upright or Dec Attending Physician: Cameron Santos Jr., M.D. Ordering Physician: Patrick Puente III, M.D. Primary Care Physician: Jenaro Blanca M.D. MEDICAL IMAGING REPORT This report is preliminary unless electronic signature is present EXAMINATION AP abdomen. DATE 11/22/2016 at 09:13. HISTORY 56-year-old female with vomiting, abdominal pain and nausea for 3 days. Exploratory laparotomy on 11/13/2016 for partial small bowel resection. COMPARISON AP abdomen and CT abdomen and pelvis, 11/21/2016. FINDINGS Midline surgical brittany are redemonstrated. There is an abnormally dilated small bowel loop to the left of midline in the abdomen measuring nearly 4.3 cm. Findings may represent postoperative ileus. Allowing for slight differences in technique, it is probably not significantly changed. No gross free intraperitoneal air is seen. NG tube extends to the distal stomach. Multiple surgical clips are seen within the left hemipelvis and bilateral hip replacement changes are present. Facet arthropathy is thought to be present on the right within the lumbar spine. IMPRESSION 1. Abnormally dilated small bowel loop to the left of midline in the abdomen. Findings may represent changes of postop ileus. Small bowel obstruction not excluded. Findings are not thought to be significantly changed compared to yesterday's study. Continued clinical and radiographic followup recommended. Dictated by... Shanta Martin M.D. [facility] A Service of [facility] & [facility] RADIOLOGY TEXT RESULTS PATIENT: SELVIN COHEN LOCATION: [place] [address] : 58 UNIT #: [id number] AGE: [address]: Cameron Santos MD SEX: F ORDER DR: THIS IS AN ELECTRONICALLY VERIFIED REPORT Shanta Martin M.D. at 11/23/2016 8:35 AM VALERIA/efren TD: 11/22/2016 12:47 JOB #: [id number] MEDICAL IMAGING REPORT Page 1 of 1 COPY
--- NOTE | ~2016-11-21 | DS ---
Unit #: [id number] #: [id number] Patient: SELVIN COHEN [id number] [address] [place], [place] [address] [id number] I MR#: [id number] NAME: SELVIN COHEN ROOM: 46 Age: 56 Sex: F Admission Date: 11/21/2016 : 1960 Discharge Date: 11/26/2016 Attending Physician: Cameron Santos Jr., M.D. Primary Care Physician: Jenaro Blanca M.D. DISCHARGE SUMMARY ADMITTING AND FINAL DIAGNOSIS Postoperative ileus with possible partial small bowel obstruction. SECONDARY DIAGNOSES 1. Morbid obesity. 2. Status post right colectomy. BRIEF SUMMARY The patient is a 56-year-old black female who recently underwent surgery by Dr. Cobian, and she underwent a right colectomy for chronic intermittent small bowel obstruction at the distal ileum. She did well on discharge but was readmitted at this time for nausea, vomiting and evidence of possible bowel obstruction postop. Physical examination on admission revealed some mild tenderness in the mid abdomen. Her brittany are still in place. No evidence of any hernias. Admitting laboratory values were basically within normal limits. White blood cell count was normal. Hemoglobin was low at 10.6. Her chemistries have been near normal with some mild elevation in her blood sugar. HOSPITAL COURSE The patient was admitted, treated initially with NG tube decompression and IV hydration. Subsequently the NG was removed. Upper GI small bowel series was obtained, which revealed slow emptying of the small bowel but no evidence of any obstruction. This was compatible with an ileus or hypotonic small bowel. She is a diabetic. At present she is on Reglan 10 mg p.o. q.i.d. and will be discharged home on this. Her wound is clean and healing well without evidence of infection or herniation. She is tolerating a diet now with bowel movements and will be discharged home on limited lifting, no more than 5-10 pounds, calling the office for followup appointment with Dr. Cobian in approximately 3-4 days for staple removal and further followup. She will be on her regular home diet and normal activity otherwise. She will be keeping her wound clean and dry. Dictated by... Cameron Santos Jr., M.D. DAMIAN/gustavo TD: 11/26/2016 14:40 JOB #: [id number] Unit #: [id number] #: [id number] Patient: SELVIN COHEN DISCHARGE SUMMARY Page 1 of 1 X Cameron Santos MD X DISCHARGE SUMMARY
[~2016-11-21 00:58] MED LIST changes: +HYDROCODONE PO
[2016-11-21 02:45] LABS: BASOPHIL% 0.2 % (0-2.5); EOSINOPHIL# 0.2 X10e3 (0-0.7); EOSINOPHIL% 1.8 % (0.0-7.0); HEMOGLOBIN 10.2 gm/dL (12.0-16.0); LYMPHOCYTE# 2.2 X10e3 (1.0-3.5); MEAN CELL VOLUME 85.4 FL (83-96); MEAN CORPUSCULAR HEMOGLOBIN 28.1 PG (28-34); MEAN CORPUSCULAR HGB CONC 32.9 g/dL (30-36); MEAN PLATELET VOLUME 7.5 FL (6.5-11.5); MONOCYTE% 8.1 % (3.0-12.0); NEUTROPHIL# 8.6 X10e3 (1.5-7.1); NEUTROPHIL% 71.9 % (40-75); PLATELET COUNT 352 X10e3 (140-420); RED BLOOD COUNT 3.63 X10e (3.90-5.30); RED CELL DISTRIBUTION WIDTH 13.8 % (11.0-15.5)
[2016-11-21 02:46] LABS: DIFF IND NO
[2016-11-21 03:11] LABS: ALBUMIN SERUM 3.6 g/dL (3.5-5.0); BILIRUBIN, DIRECT 0.1 mg/dL (0.0-0.2); BILIRUBIN,INDIRECT 0.6 mg/dL (0.0-0.9); BILIRUBIN,TOTAL 0.7 mg/dL (0.2-2.0); BUN/CREATININE RATIO 21.66; CALCIUM SERUM 9.4 mg/dL (8.4-10.2); CREATININE SERUM 0.6 mg/dL (0.6-1.4); GLOM FILT RATE Estimated 117.3 mL/min (>60); POTASSIUM 3.2 mmol/L (3.5-5.1); PROTEIN TOTAL SERUM 7.7 g/dL (6.0-8.3)
[2016-11-21 03:59] LABS: URINE SOURCE CLEAN CATCH
[2016-11-21 04:06] LABS: URINE APPEARANCE TURBID; URINE BILIRUBIN NEG (NEG); URINE BLOOD NEG (NEG); URINE COLOR YELLOW; URINE GLUCOSE NEG (NEG); URINE KETONE 3+ (NEG); URINE LEUKOCYTE ESTERASE 1+ (NEG); URINE NITRATE NEG (NEG); URINE PROTEIN 2+ (NEG); URINE SPECIFIC GRAVITY 1.027 (1.003-1.035)
[2016-11-21 04:08] LABS: URINE BACTERIA AUWI NEG (NEGATIVE); URINE SQUAMOUS EPITHELIAL CELL FEW /[HPF]
[2016-11-21 04:11] LABS: CULTURE INDICATED? NO
[2016-11-22 04:31] LABS: HEMATOCRIT 31.1 % (35.0-45.0); MEAN CELL VOLUME 86.7 FL (83-96); MEAN CORPUSCULAR HEMOGLOBIN 27.9 PG (28-34); MEAN CORPUSCULAR HGB CONC 32.2 g/dL (30-36); MEAN PLATELET VOLUME 7.5 FL (6.5-11.5); RED BLOOD COUNT 3.58 X10e (3.90-5.30); WHITE BLOOD COUNT 10.3 X10e3 (4.0-10.5)
[2016-11-22 04:47] LABS: ALBUMIN SERUM 3.3 g/dL (3.5-5.0); BILIRUBIN,TOTAL 0.7 mg/dL (0.2-2.0); BUN/CREATININE RATIO 15.71; CALCIUM SERUM 8.7 mg/dL (8.4-10.2); CREATININE SERUM 0.7 mg/dL (0.6-1.4); GLOM FILT RATE Estimated 111.5 mL/min (>60); POTASSIUM 3.4 mmol/L (3.5-5.1)
[2016-11-23 04:18] LABS: HEMATOCRIT 31.1 % (35.0-45.0); HEMOGLOBIN 9.8 gm/dL (12.0-16.0); MEAN CELL VOLUME 86.4 FL (83-96); MEAN CORPUSCULAR HEMOGLOBIN 27.3 PG (28-34); MEAN CORPUSCULAR HGB CONC 31.6 g/dL (30-36); MEAN PLATELET VOLUME 7.2 FL (6.5-11.5); RED BLOOD COUNT 3.6 X10e (3.90-5.30); WHITE BLOOD COUNT 11.1 X10e3 (4.0-10.5)
[2016-11-23 04:42] LABS: BUN/CREATININE RATIO 12.85; CALCIUM SERUM 8.6 mg/dL (8.4-10.2); CREATININE SERUM 0.7 mg/dL (0.6-1.4); GLOM FILT RATE Estimated 111.5 mL/min (>60); POTASSIUM 3.4 mmol/L (3.5-5.1)
[2016-11-24 03:57] LABS: BASOPHIL% 0.3 % (0-2.5); EOSINOPHIL# 0.3 X10e3 (0-0.7); EOSINOPHIL% 2.1 % (0.0-7.0); HEMATOCRIT 33.9 % (35.0-45.0); HEMOGLOBIN 10.6 gm/dL (12.0-16.0); LYMPHOCYTE% 15.7 % (17.0-45.0); MEAN CELL VOLUME 86.8 FL (83-96); MEAN CORPUSCULAR HEMOGLOBIN 27.2 PG (28-34); MEAN CORPUSCULAR HGB CONC 31.3 g/dL (30-36); MEAN PLATELET VOLUME 7.4 FL (6.5-11.5); MONOCYTE% 7.6 % (3.0-12.0); NEUTROPHIL# 9.6 X10e3 (1.5-7.1); NEUTROPHIL% 74.3 % (40-75); PLATELET COUNT 443 X10e3 (140-420); RED CELL DISTRIBUTION WIDTH 13.9 % (11.0-15.5); WHITE BLOOD COUNT 12.9 X10e3 (4.0-10.5)
[2016-11-24 04:00] LABS: DIFF IND NO
[2016-11-24 04:25] LABS: BUN/CREATININE RATIO 16.66; CALCIUM SERUM 9.3 mg/dL (8.4-10.2); CREATININE SERUM 0.9 mg/dL (0.6-1.4); GLOM FILT RATE Estimated 82.3 mL/min (>60); POTASSIUM 3.8 mmol/L (3.5-5.1)
[2016-11-26 03:09] LABS: HEMATOCRIT 27.9 % (35.0-45.0); MEAN CELL VOLUME 86.3 FL (83-96); MEAN CORPUSCULAR HEMOGLOBIN 27.9 PG (28-34); MEAN CORPUSCULAR HGB CONC 32.3 g/dL (30-36); MEAN PLATELET VOLUME 7.2 FL (6.5-11.5); RED BLOOD COUNT 3.23 X10e (3.90-5.30); RED CELL DISTRIBUTION WIDTH 14.1 % (11.0-15.5); WHITE BLOOD COUNT 10.4 X10e3 (4.0-10.5)
[2016-11-26] MEDS ORDERED: REGLAN10 MG PO (10:00)
== END 2016-11-26 11:15 | disposition home or self-care (01) | DRG 395 ==
LOC: CED 00:58 → CEDOF 05:00 → C4C 05:00 → CED 05:05 → CEDOF 05:05 → C4C 09:40 → CEDOF 09:40 → C4C 09:40
PROVIDERS: Emergency Medicine; Surgery
PROC: 0D9670Z Drainage of Stomach with Drainage Device, Via Natural or Artificial Opening (ICD-10-PCS; principal; 2016-11-21)
DX: K91.3 Postprocedural intestinal obstruction (principal); E66.01 Morbid (severe) obesity due to excess calories; E11.9 Type 2 diabetes mellitus without complications; R00.0 Tachycardia, unspecified; Z68.36 Body mass index [BMI] 36.0-36.9, adult
CPT/HCPCS: 36415; 74000; 74020; 74177; 74250; 80048; 80053; 80076; 81003; 82947; 83605; 83690; 85025; 85027; 96361; 96365; 96375; 96376; 99285; J1815; J2270; J2405; J2543; J2550; J2765; Q9967

== ENCOUNTER → 2016-12-12 | Outpatient (CLI) | payer OTHER ==
[~2016-12-12] MED LIST changes: +REGLAN10 MG PO
--- NOTE | ~2016-12-12 | US5 ---
[facility] A Service of [facility] RADIOLOGY TEXT RESULTS PATIENT: SELVIN COHEN LOCATION: [facility] : 58 UNIT #: [id number] AGE: [address]: Giorgi Cobian MD SEX: F ORDER DR: [id number] [facility] [address] [place], [place] [address] [id number] O MR#: [id number] Acc #: [id number] NAME: SELVIN COHEN : 1960 SEX: F STUDY DATE/TIME: 12/12/2016 12:11 UNIT: [facility] ROOM: STUDY DESCRIPTION: US Abdominal Complete Attending Physician: Giorgi Cobian M.D. Referring Physician: Giorgi Cobian M.D. Ordering Physician: Giorgi Cobian M.D. Primary Care Physician: Jenaro Blanca M.D. MEDICAL IMAGING REPORT This report is preliminary unless electronic signature is present EXAM Abdominal ultrasound INDICATIONS Generalized abdominal pain since abdominal surgery on 11/14/2016 PROCEDURE Blanca-scale and Doppler imaging of the abdomen COMPARISON CT from 11/21/2016 FINDINGS Visualized segments abdominal aorta and inferior vena cava are unremarkable. Pancreas is mostly obscured and is not well seen. The liver measures 16.8 cm in length. No liver mass on submitted images. Right kidney measures 10.5 cm and is unremarkable. Common duct measures 5-6 mm. Left kidney measures 11.3 cm. No hydronephrosis. Spleen measures 9.2 cm. IMPRESSION 1. No acute findings. 2. Surgical absence of the gallbladder. 3. Majority of the pancreas is obscured by bowel gas and not well seen Dictated by... Itz Berger M.D. THIS IS AN ELECTRONICALLY VERIFIED REPORT Itz Berger M.D. at 12/13/2016 7:17 AM JUANA/keegan TD: 12/12/2016 18:53 [facility] A Service of [facility] RADIOLOGY TEXT RESULTS PATIENT: SELVIN COHEN LOCATION: [facility] : 58 UNIT #: [id number] AGE: [address]: Giorgi Cobian MD SEX: F ORDER DR: JOB #: [id number] MEDICAL IMAGING REPORT Page 1 of 1 COPY
== END | disposition home or self-care (01) ==
LOC: CGUS 11:26
DX: K56.69 Other intestinal obstruction (principal); Z90.49 Acquired absence of other specified parts of digestive tract
CPT/HCPCS: 76700

== ENCOUNTER → 2016-12-15 | Outpatient (CLI) | payer OTHER ==
--- NOTE | ~2016-12-15 | CR4 ---
[facility] A Service of [facility] & [facility] RADIOLOGY TEXT RESULTS PATIENT: SELVIN COHEN LOCATION: [facility] : 58 UNIT #: [id number] AGE: [address]: Giorgi Cobian MD SEX: F ORDER DR: [id number] [place] [address] [place], [place] [address] [id number] O MR#: [id number] Acc #: [id number] NAME: SELVIN COHEN : 1960 SEX: F STUDY DATE/TIME: 12/15/2016 13:15 UNIT: [facility] ROOM: STUDY DESCRIPTION: CR Abdomen Flat Upright or Dec Attending Physician: Giorgi Cobian M.D. Referring Physician: Giorgi Cobian M.D. Ordering Physician: Giorgi Cobian M.D. Primary Care Physician: Jenaro Blanca M.D. MEDICAL IMAGING REPORT This report is preliminary unless electronic signature is present EXAM Abdomen, flat and upright HISTORY Abdomen pain and bloating and diarrhea for 1 month. FINDINGS Flat and upright views of the abdomen demonstrate mild distension of gas and fluid-filled small bowel in the left abdomen measuring up to 4.2 cm in diameter, similar to 11/22/2016 x-ray. There are air-fluid levels on the upright view. Findings could be due to localized ileus or partial small bowel obstruction. No dilatation of the remainder of the bowel. No free air. Surgical clips in the right upper quadrant. Moderate degenerative changes in the lower lumbar spine. Additional surgical clips in the left pelvis. Bilateral hip prostheses. IMPRESSION 1. Dilatation of small bowel in the left abdomen with associated air-fluid levels, measuring up to 4.2 cm in diameter. The degree of dilatation is similar to 11/22/2016. This could be due to small bowel ileus or partial small bowel obstruction. 2. No dilatation of the remainder of the bowel. 3. No free air. Dictated by... Godwin Colvin M.D. THIS IS AN ELECTRONICALLY VERIFIED REPORT Godwin Colvin M.D. at 12/18/2016 11:00 PM DFL/psc TD: 12/18/2016 02:44 [facility] A Service of [facility] & [facility] RADIOLOGY TEXT RESULTS PATIENT: SELVIN COHEN LOCATION: [facility] : 58 UNIT #: [id number] AGE: [address]: Giorgi Cobian MD SEX: F ORDER DR: KWADWO #: [id number] MEDICAL IMAGING REPORT Page 1 of 1 COPY
== END | disposition home or self-care (01) ==
LOC: CLAB 12:52
DX: K56.69 Other intestinal obstruction (principal)
CPT/HCPCS: 74020; 87493

== ENCOUNTER → 2017-01-05 | Outpatient (CLI) | payer OTHER ==
--- NOTE | ~2017-01-05 | EE ---
Unit #: [id number] #: [id number] Patient: SELVIN COHEN [id number] [address] [address] [id number] O MR#: [id number] NAME: SELVIN COHEN : 1960 SEX: F STUDY DATE/TIME: 01/05/2017 UNIT: [facility] ROOM: STUDY DESCRIPTION: EEG Attending Physician: Daniella Andrade Referring Physician: Daniella Andrade Primary Care Physician: Jenaro Blanca M.D. NEURODIAGNOSTICS REPORT EXAM EEG REASON FOR STUDY Seizures. EEG DESCRIPTION This is an outpatient, digitally recorded, multi-montage adult EEG with leads placed according to the International 10-20 system. Hyperventilation and photic stimulation were attempted. With the patient fully aroused, there is 8 Hz posterior dominant alpha rhythm, which is symmetric and attenuates with eyes open. The patient did become drowsy and later on stage II sleep was seen. Throughout the recording, there seemed to an artifact because it is rather persistent, about 4.5-5 Hz, and it has the characteristic of some very sharp phase reversing between F8 and T4. It looks too sharp, most like spike and occasionally it looks like a phantom spike and wave because I can see the spike occasionally. It looks like some sort of a muscle twitch type activity. Hyperventilation did not produce it, but photic stimulation after 11 Hz it became more prominent and sometimes you could see it all through the recording. On the referential montages, it looks like it is probably A1 with attached ear reference and is persistent. I did not see significant blink with it and the patient did have some stage II sleep. I did not see any driving. IMPRESSION Questionable abnormal EEG with some sort of artifact, but please clinically correlate. It looks like this is a technical issue. If it remains diagnostic problem, then I would recommend a sleep-deprived prolonged recording repeated so clinical correlation is recommended. Dictated by... Sophie Nava/efren TD: 01/06/2017 07:00 JOB #: [id number] CC: Daniella Andrade M.D. Unit #: [id number] #: [id number] Patient: SELVIN COHEN NEURODIAGNOSTICS REPORT Page 1 of 1 X Naif Monique MD NEURODIAGNOSTICS REPORT
== END | disposition home or self-care (01) ==
LOC: CEEG 10:26
DX: R56.9 Unspecified convulsions (principal)
CPT/HCPCS: 95816

== ENCOUNTER → 2017-01-08 | Outpatient (CLI) | payer OTHER ==
--- NOTE | ~2017-01-08 | CT2 ---
[facility] A Service of [facility] & [facility] RADIOLOGY TEXT RESULTS PATIENT: SELVIN COHEN [facility] 58 UNIT #: [id number] AGE: [address]: Giorgi Cobian MD SEX: F ORDER DR: [id number] [facility] [address] [place], [place] [address] [id number] O MR#: [id number] Acc #: [id number] NAME: SELVIN COHEN : 1960 SEX: F STUDY DATE/TIME: 01/08/2017 13:40 UNIT: [facility] ROOM: STUDY DESCRIPTION: CT Abd and Pelv W Cont Attending Physician: Giorgi Cobian M.D. Referring Physician: Giorgi Cobian M.D. Ordering Physician: Giorgi Cobian M.D. Primary Care Physician: Jenaro Blanca M.D. MEDICAL IMAGING REPORT This report is preliminary unless electronic signature is present EXAM Abdomen and pelvis CT with contrast HISTORY Small bowel obstruction November 2016. Abdominal surgery at that time. Pain and tenderness around the incision in the mid abdomen since surgery. TECHNIQUE Axial imaging was obtained through the abdomen and pelvis with oral and intravenous contrast. 100 mL of Isovue was used. This CT exam was performed with one or more of the following radiation dose reduction techniques: automatic exposure control, adjustment of mA and/or kV according to patient size, and iterative reconstruction. COMPARISON Scan from 11/21/2016 FINDINGS The liver, spleen and pancreas are unremarkable. There is probably a nonobstructing 3.0-4.0 mm kidney stone on the right. It is partially obscured by the contrast but appears similar to the previous scan. No adrenal masses are seen. There is no evidence of retroperitoneal adenopathy or ascites. No distended bowel loops are seen to suggest recurrent obstruction. No fluid collections are seen along the incision. Postoperative changes are seen in the mid pelvis where an anastomosis is noted. Postoperative granulation tissue is seen in this area but no discrete fluid collections are noted. No pelvic fluid collections are seen. Lower pelvic images are degraded by streak artifact from bilateral hip prostheses. IMPRESSION Postoperative changes as described above. Postoperative granulation STS. [facility] A Service of [facility] & [facility] RADIOLOGY TEXT RESULTS PATIENT: SELVIN COHEN LOCATION: [facility] : 58 UNIT #: [id number] AGE: [address]: Giorgi Cobian MD SEX: F ORDER DR: tissue associated with the anastomotic site but no evidence of fluid collection. No evidence of recurrent bowel obstruction. No fluid collections are seen along the incision. There is probably a small nonobstructing right kidney stone unchanged from the previous scan but this is partially obscured by intravenous contrast. Dictated by... Giorgi Mccormick M.D. THIS IS AN ELECTRONICALLY VERIFIED REPORT Giorgi Mccormick M.D. at 01/09/2017 5:00 PM Yousif TD: 01/09/2017 14:55 JOB #: [id number] MEDICAL IMAGING REPORT Page 1 of 1 COPY
[2017-01-08 18:35] LABS: POC - GFR >60.0 mL/min (>60)
== END | disposition home or self-care (01) ==
LOC: CCAT 11:07
PROVIDERS: Specialist
DX: K56.69 Other intestinal obstruction (principal); Z98.890 Other specified postprocedural states
CPT/HCPCS: 74177; 82565; Q9967